=== PATIENT | female | born 1985 ===

== ENCOUNTER 2016-11-16 16:59 | Emergency (ER) | payer OTHER ==
[~2016-11-16] VITALS: Ht 149.9 cm; Wt 81.6 kg
[2016-11-16] MEDS ORDERED: BACTRIM DS TAB1 EACH PO (19:18)
[2016-11-16] MEDS ORDERED: AMOXICILLIN875 M1 PO (19:18)
--- NOTE | 2016-11-16 19:20 | ED SKIN/ALLERGY COMPLAINT ---
History of Present Illness General Chief Complaint: Skin Rash/ Abcess Stated Complaint: "BOIL ON BODY PART" Source: patient Exam Limitations: no limitations Vital Signs & Intake/Output Vital Signs & Intake/Output Vital Signs Date Time Temp Pulse Resp B/P B/P Pulse O2 O2 Flow FiO2 Mean Ox Delivery Rate 11/16 1941 97.0 86 15 131/71 99 Room Air 11/16 1827 Room Air 11/16 1705 96.7 98 15 107/73 95 Room Air Room Air Allergies Coded Allergies: No Known Allergies (11/16/16) Reconcile Medications Amoxicillin 875 MG TABLET 1 TAB PO BID ABSCESS Sulfamethoxazole/Trimethoprim (Bactrim Ds Tablet) 800 MG-160 MG TABLET 1 TAB PO BID ABSCESS Triage Note: PT TO ED FOR C/C OF "BOIL ON PRIVATE AREA" FOR TWO WEEKS, BUT TODAY IT GOT BIGGER. DENIES UA S/S. AFEBRILE IN TRIAGE. REQUESTING FEMALE PROVIDER. Triage Nurses Notes Reviewed? yes Onset: Gradual Duration: week(s): Timing: recent history Severity: moderate Location: genitalia : No Patient currently breastfeeds: No HPI: 31-year-old female presents emergency department complaining of painful lump on labia 2 weeks. She states that she has had lumps like this before requiring incision and drainage. She has seen her BOB[facility] WINDER in the past for these bumps however is referred to the emergency department often for the drainage. Patient states that this lump feels similar to her previous ones, very tender, worse with movement, the patient feels that she is walking differently given her pain. She denies fevers, chills, dysuria, hematuria, changes in vaginal discharge, vaginal odor, abdominal pain, nausea, vomiting. (KARIME BERNABE,RUTHIE RAMOS) Past History Travel History Traveled to [place] past 21 day No Medical History Any Pertinent Medical History? see below for history Neurological: VALLE'S SYNDROME EENT: NONE Cardiovascular: NONE Respiratory: NONE Gastrointestinal: NONE Hepatic: NONE Renal: NONE Musculoskeletal: NONE Psychiatric: NONE Endocrine: NONE Blood Disorders: NONE Cancer(s): NONE SLIP COVER CUTTER/Reproductive: NONE Surgical History Surgical History: non-contributory Psychosocial History What is your primary language Italian Tobacco Use: Never used ETOH Use: denies use Illicit Drug Use: denies illicit drug use Family History Hx Contributory? No (RUTHIE SCHAFFER PA-C) Review of Systems Review of Systems Constitutional: Reports: no symptoms. EENTM: Reports: no symptoms. Respiratory: Reports: no symptoms. Cardiovascular: Reports: no symptoms. GI: Reports: no symptoms. Genitourinary: Reports: see HPI. Musculoskeletal: Reports: no symptoms. Skin: Reports: see HPI. Neurological/Psychological: Reports: no symptoms. Hematologic/Endocrine: Reports: no symptoms. Immunologic/Allergic: Reports: no symptoms. All Other Systems: Reviewed and Negative (KARIME BERNABE,RUTHIE RAMOS) Physical Exam Physical Exam General Appearance: well developed/nourished, no apparent distress, alert, awake Comments: Well-developed well-nourished person in no acute distress HEENT: HEAD is atraumatic, normocephalic Neck: Supple, normal range of motion Back: Full range of motion Respiratory: No respiratory distress. Patient speaking in full complete sentences. Abdomen: Soft, nontender nondistended, no appreciable organomegaly. Normal bowel sounds. No rebound/guarding, No appreciable enlargement of the abdominal aorta, No ascites. SLIP COVER CUTTER: 1x2cm area of erythema, fluctuance, tenderness, with central pustule superior to right labia majora Extremity: No edema, full range of motion of extremities Neuro: Alert oriented x3, motor sensory normal, There were no obvious focal neurologic abnormalities. Skin: See SLIP COVER CUTTER above Psych: Mood and affect is normal, memory and judgment is normal. (KARIME BERNABE,RUTHIE RAMOS) Progress Differential Diagnosis: abscess/cellulitis, allergic reaction, contact dermatitis, drug reaction, erythema multiforme, shingles, syphilis/gonococcemia, urticaria Plan of Care: Orders Procedure Date/time Status TRUNK AREA CULTURE 11/16 1826 Active Microbiology 11/17 1911 TRUNK: Culture & Sensitivity - RECD 11/17 1911 TRUNK: Gram Stain - RECD Abscess I&D expressed cloudy, turbid fluid, culture sent to the lab. Patient experienced relief of pain following I&D. The patient tolerated procedure well. No wick placement necessary. Patient was educated she may try salt sitz baths and she should begin exfoliating once skin heals 3 times a week. The patient was instructed to follow-up with her primary care doctor or return here in 2 days for wound check. She was given a prophylactic course of antibiotics. The patient is nontoxic appearing, in no acute distress, her vital signs are stable. The patient is in agreement with the plan of care. (KARIME BERNABE,RUTHIE RAMOS) Departure Departure Disposition: HOME OR SELF CARE Condition: Stable Clinical Impression Primary Impression: Abscess of labia Referrals: UNKNOWN (PCP/Family) Additional Instructions: Take full course of antibiotics. Try salt water rinses for your skin infections. Also try exfoliating scrubs 3 times a week. Follow up with your primary care doctor or return here in two days for your wound to be checked again. Return sooner with worsening symptoms or concerns such as increasing pain, fevers, swelling, spreading redness. Take tylenol or motrin as needed as prescribed for pain. Departure Forms: Customer Survey General Discharge Information Prescriptions: Current Visit Scripts Amoxicillin 1 TAB PO BID #20 TAB Sulfamethoxazole/Trimethoprim (Bactrim Ds Tablet) 1 TAB PO BID #20 TAB (KARIME BERNABE,RUTHIE RAMOS) PA/LEGAL DOCUMENT ASSISTANT Co-Sign Statement Statement: ED Attending supervision documentation- [] I saw and evaluated the patient. I have also reviewed all the pertinent lab results and diagnostic results. I agree with the findings and the plan of care as documented in the PA's/LEGAL DOCUMENT ASSISTANT's documentation. [X] I have reviewed the ED Record and agree with the PA's/LEGAL DOCUMENT ASSISTANT's documentation. [] Additions or exceptions (if any) to the PAs/LEGAL DOCUMENT ASSISTANT's note and plan are summarized below: [] (EMILY LOVE,DANIELA) Procedures Incision and Drainage Site: right labia Blade Size: 11 I & D Procedure: Yes: betadine prep, sterile drapes applied. Progress: Patient tolerated procedure well, requests no dressing to be applied and wound left open. (KARIME BERNABE,RUTHIE RAMOS)
[2016-11-16 19:41] VITALS: BP 131/71
== END 2016-11-16 19:28 ==
LOC: ERH 16:59
DX: N76.4 Abscess of vulva (principal)
CPT/HCPCS: 87070

== ENCOUNTER 2017-10-06 07:54 | Emergency (ER) | payer OTHER ==
[~2017-10-06] VITALS: Ht 149.9 cm; Wt 81.6 kg
[~2017-10-06 07:54] MED LIST: AMOXICILLIN875 M1 PO; BACTRIM DS TAB1 EACH PO
[2017-10-06 07:57] VITALS: BP 114/81
[2017-10-06] MEDS ORDERED: BACTRIM DS TAB1 EACH PO (08:22)
--- NOTE | 2017-10-06 08:22 | ED SKIN/ALLERGY COMPLAINT ---
See Addendum History of Present Illness General Chief Complaint: Skin Rash/ Abcess Stated Complaint: ABCESS Source: patient Exam Limitations: no limitations Vital Signs & Intake/Output Vital Signs & Intake/Output Vital Signs Date Time Temp Pulse Resp B/P B/P Pulse O2 O2 Flow FiO2 Mean Ox Delivery Rate 10/06 0823 Room Air 10/06 0757 98.4 93 18 114/81 98 Room Air Allergies Coded Allergies: No Known Allergies (11/16/16) Reconcile Medications Amoxicillin 875 MG TABLET 1 TAB PO BID ABSCESS Sulfamethoxazole/Trimethoprim (Bactrim Ds Tablet) 800 MG-160 MG TABLET 1 TAB PO BID ABSCESS Sulfamethoxazole/Trimethoprim (Bactrim Ds Tablet) 800 MG-160 MG TABLET 1 TAB PO BID ABSCESS Triage Note: 32 YO FEMALE TO TRIAGE FOR EVAL OF ABCESS ON VAGINA. STATES ITS BEEN THERE "FOR MONTHS" Triage Nurses Notes Reviewed? yes Onset: Abrupt Duration: week(s): Timing: recent history Severity: mild, moderate : No Patient currently breastfeeds: No HPI: 32-year-old female comes into the emergency room for further evaluation swelling and pain to her private area. Patient reports that she's had boils before and this has been there for some weeks. Some associated fever chills. Denies any vomiting. Denies any other associated symptoms. Nothing seems to make the symptoms better or worse. Comes in for further evaluation. Past History Travel History Traveled to [place] past 21 day No Medical History Any Pertinent Medical History? 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 No Review of Systems Review of Systems Constitutional: Reports: no symptoms. EENTM: Reports: no symptoms. Respiratory: Reports: no symptoms. Cardiovascular: Reports: no symptoms. GI: Reports: no symptoms. Genitourinary: Reports: see HPI. Musculoskeletal: Reports: no symptoms. Skin: Reports: see HPI. Neurological/Psychological: Reports: no symptoms. Hematologic/Endocrine: Reports: no symptoms. Immunologic/Allergic: Reports: no symptoms. All Other Systems: Reviewed and Negative Physical Exam Physical Exam General Appearance: well developed/nourished, mild distress Head: atraumatic Eyes: Bilateral: normal appearance. Ears, Nose, Throat: normal ENT inspection, hearing grossly normal Neck: normal inspection Respiratory: no respiratory distress Back: normal inspection Extremities: normal inspection Neurologic/Psych: awake, alert, oriented x 3, normal mood/affect Skin: intact Skin Problem Location: see diagram Skin Problem Character: mild erythema and induration, no drainage, small area of skin sloughing by 1 cm Lymphatic: no anterior cervical david Diagram Chest, Abdomen, Back: 1) Progress Differential Diagnosis: abscess/cellulitis, allergic reaction, contact dermatitis, ingrown hair Plan of Care: 10/06/2017 8:34:48 AM Warm compresses and take Bactrim as prescribed. Follow-up with primary care doctor and [facility] doctor as needed. Return if any other concerns worsening symptoms. Departure Departure Disposition: HOME OR SELF CARE Condition: Stable Clinical Impression Primary Impression: Skin abscess Referrals: Unknown (PCP/Family) Additional Instructions: Take Bactrim as prescribed. Warm compresses. Follow-up with your [facility] doctor. Return if any concerns worsening symptoms. Please go over all results of today's visit with your primary care doctor. Contact your primary care doctor to let them know you were here in the emergency room. There may be nonspecific findings which may not be related to your visit today here in the emergency room but may require further evaluation and chronic monitoring by your primary care doctor. If you had a laceration today the chance of foreign body always remains. You should follow-up with your primary care doctor for recheck in 3-5 days for a wound check. If you had an x-ray done there is a chance that a fracture could have been missed on initial read and you should follow-up with your primary care doctor for repeat x-rays if symptoms persist. If your blood pressure was elevated here in the emergency room please have rechecked by [facility] primary care doctor within the next 48. If you were prescribed a narcotic here in the emergency room or any type of controlled substances you're not allowed to drive while taking this medication or operate any type of heavy machinery. Narcotics can make you feel lightheaded dizziness nausea and can cause constipation. You may need to mushroom picker a stool softener. Thank you for choosing [facility] emergency room. Please return to the emergency room immediately if you have any other concerns worsening of symptoms. Departure Forms: Customer Survey General Discharge Information Prescriptions: Current Visit Scripts Sulfamethoxazole/Trimethoprim (Bactrim Ds Tablet) 1 TAB PO BID #14 TAB
== END 2017-10-06 08:47 ==
LOC: ERH 07:54
DX: N76.0 Acute vaginitis (principal)